=== PATIENT | male | born 1955 ===

== ENCOUNTER 2018-06-10 16:30 | Emergency (ER) | payer MEDICAID ==
[2018-06-10 16:46] VITALS: RESP 16
--- NOTE | 2018-06-10 17:14 | C.PDOC ---
History Of Present Illness 63 y/o male presents to the ED with complaints of nausea, vomiting, and abdominal pain since last night. Patient had 2 episodes of vomiting, nonbilious nonbloody. Denies any diarrhea, constipation, blood in the stool, hematuria, fever, or change in PO intake. Denies any drug use. Time Seen by Provider: 06/10/18 16:53 Chief Complaint (Nursing): Abdominal Pain History Per: Patient History/Exam Limitations: no limitations Onset/Duration Of Symptoms: Days Current Symptoms Are (Timing): Still Present Associated Symptoms: Nausea, Vomiting Past Medical History Reviewed: Historical Data, Nursing Documentation, Vital Signs Vital Signs: Last Vital Signs Temp 98.5 F 06/10/18 16:44 Pulse 69 06/10/18 16:44 Resp 16 06/10/18 16:44 BP 167/69 H 06/10/18 16:44 Pulse Ox 98 06/10/18 16:44 - Medical History PMH: No Chronic Diseases Family History: States: No Known Family Hx - Social History Hx Tobacco Use: No Hx Alcohol Use: No Hx Substance Use: No - Immunization History Hx Tetanus Toxoid Vaccination: No Hx Influenza Vaccination: No Hx Pneumococcal Vaccination: No Review Of Systems Except As Marked, All Systems Reviewed And Found Negative. Constitutional: Negative for: Fever, Chills Cardiovascular: Negative for: Palpitations Respiratory: Negative for: Shortness of Breath Gastrointestinal: Positive for: Nausea, Vomiting, Abdominal Pain. Negative for: Diarrhea, Hematochezia, Hematemesis, Other (change in PO intake) Genitourinary: Negative for: Dysuria, Hematuria Neurological: Negative for: Weakness, Dizziness Physical Exam - Physical Exam Appears: Non-toxic, No Acute Distress Skin: Normal Color, Warm, Dry Head: Atraumatic, Normacephalic Eye(s): bilateral: Normal Inspection, PERRL, EOMI Oral Mucosa: Moist Neck: Normal ROM Chest: Symmetrical Cardiovascular: Rhythm Regular, No Murmur Respiratory: Normal Breath Sounds, No Accessory Muscle Use, Other (No respiratory distress) Gastrointestinal/Abdominal: Soft, Tenderness (epigastric abdominal tenderness), No Guarding, No Rebound Back: No CVA Tenderness, No Vertebral Tenderness Extremity: Bilateral: Atraumatic, Normal Color And Temperature, Normal ROM Neurological/Psych: Oriented x3, Normal Speech ED Course And Treatment - Laboratory Results Result Diagrams: 06/10/18 17:36 12/17/18 17:36 O2 Sat by Pulse Oximetry: 98 (RA) Pulse Ox Interpretation: Normal Medical Decision Making Medical Decision Making: Impression: Abdominal pain, Nausea, Vomiting Plan: --Blood work --20 mg IV Pepcid --8 mg IV Zofran --IV fluids --30 mg IV Toradol --CT Abd/Pelvis with IV contrast [facility] - [facility] - Disposition: HOME/ ROUTINE Disposition Time: 19:50 Condition: IMPROVED Additional Instructions: KHRIS POLO, thank you for letting us take care of you today. The emergency medical care you received today was directed at your acute symptoms. If you were prescribed any medication, please fill it and take as directed. It may take several days for your symptoms to resolve. Return to the Emergency Department if your symptoms worsen, do not improve, or if you have any other problems. Please contact your doctor or call one of the physicians/clinics you have been referred to that are listed on the Patient Visit Information form that is included in your discharge packet. Bring any paperwork you were given at [facility], [place] with you along with any medications you are taking to your follow up visit. Our treatment cannot replace ongoing medical care by a primary care provider outside of the emergency department. Thank you for allowing the [facility] team to be part of your care today. Follow up with your primary care doctor in 2-3 days for re-evaluation and further management. Prescriptions: Famotidine [Pepcid] 20 mg PO BID #14 tab Ondansetron ODT [Zofran ODT] 8 mg PO Q8 PRN #15 odt PRN Reason: Nausea/Vomiting Instructions: Gastritis (DC) Forms: [employer] (Macedonian) - Clinical Impression Clinical Impression: Abdominal pain, Gastritis - Scribe Statement The provider has reviewed the documentation as recorded by the Orlando Fernández Provider Attestation: All medical record entries made by the Mickeyiblinda were at my direction and personally dictated by me. I have reviewed the chart and agree that the record accurately reflects my personal performance of the history, physical exam, medical decision making, and the department course for this patient. I have also personally directed, reviewed, and agree with the discharge instructions and disposition.
[2018-06-10] MEDS ORDERED: Sodium Chloride 0.9% 1,000 ML IV ONE (17:17)
[2018-06-10] MEDS ORDERED: Sodium Chloride 0.9% 1,000 ML ONE (17:40)
[2018-06-10 17:41] LABS: BASO # 0.1 K/uL (0.0-0.2); BASO % 0.8 % (0.0-2.0); EOS % 0.4 % (0.0-4.0); HEMOGLOBIN 14.5 g/dL (12.0-18.0); LYMPH # 1.7 K/uL (1.0-4.3); LYMPH % 17.5 % (20.0-40.0); MEAN CORPUSCULAR HGB CONC 33.7 g/dL (33.0-37.0); MEAN PLATELET VOLUME 8.1 fL (7.2-11.7); MONO # 0.4 K/uL (0.0-0.8); MONO % 4.1 % (0.0-10.0); NEUT # 7.6 K/uL (1.8-7.0); NEUT % 77.2 % (50.0-75.0); RBC 4.68 Mil/uL (4.40-5.90); RED CELL DISTRIBUTION WIDTH 13.6 % (11.5-14.5); WHITE BLOOD COUNT 9.8 K/uL (4.8-10.8)
[2018-06-10 17:58] LABS: ALB/GLOB RATIO 1.3 (1.0-2.1); ALBUMIN 4.8 g/dL (3.5-5.0); ALT/SGPT 35 U/L (21-72); AST/SGOT 25 U/L (17-59); BLOOD UREA NITROGEN 13 mg/dL (9-20); CALCIUM 9.4 mg/dl (8.6-10.4); GFR NON-AFRICAN AMERICAN > 60; LIPASE 34 U/L (23-300)
[2018-06-10] MEDS ORDERED: Iohexol 300 100 ML IJ ONE (18:38)
--- NOTE | 2018-06-10 19:30 | CT ---
Date of service: 06/10/2018 PROCEDURE: CT Abdomen and Pelvis with contrast HISTORY: upper abdominal pain/tenderness COMPARISON: None. TECHNIQUE: Contrast dose: 100 milliliters. Radiation dose: Total exam DLP = 1016.1 mGy-cm. This CT exam was performed using one or more of the following dose reduction techniques: Automated exposure control, adjustment of the mA and/or kV according to patient size, and/or use of iterative reconstruction technique. FINDINGS: LOWER THORAX: No focal alveolar infiltrate or effusion is seen at the lung bases. Visualized distal esophagus is unremarkable. Stomach is distended with debris, but without definite wall thickening. Antrum is normal in outline. Duodenum is unremarkable. LIVER: Unremarkable. No gross lesion or ductal dilatation. GALLBLADDER AND BILE DUCTS: Unremarkable. PANCREAS: Unremarkable. No gross lesion or ductal dilatation. SPLEEN: Unremarkable. ADRENALS: Unremarkable. No mass. KIDNEYS AND URETERS: There is evidence of a small right renal cyst. No hydronephrosis, calculus, or perinephric changes are identified. No ureteral calculus is seen. VASCULATURE: Unremarkable. No aortic aneurysm. Mild atheromatous plaque is identified in the aortoiliac region. BOWEL: Unremarkable. No obstruction. No gross mural thickening. APPENDIX: Normal appendix. PERITONEUM: Unremarkable. No free fluid. No free air. LYMPH NODES: Unremarkable. No enlarged lymph nodes. BLADDER: Unremarkable. REPRODUCTIVE: Prostate gland is mildly enlarged with some calcification. BONES: There are degenerative changes seen in the spine. There are some small subchondral cysts seen in the superior endplate region of L4. No bony lesion is seen elsewhere. Mild degenerative changes are seen in the hips. Mild disc bulging is seen in the lower lumbar spine region. OTHER FINDINGS: Small umbilical fat containing hernia is noted. IMPRESSION: Distended stomach with moderate debris. Further clinical follow-up is suggested to exclude an entity such as gastro paresis. No gastric wall thickening is seen. No appreciable other acute inflammatory process in the abdomen or pelvis. No evidence of bowel obstruction, gallstones, or hydronephrosis. Small right renal cyst.
[2018-06-10 20:14] VITALS: BP 151/83; PULSE 68; TEMP 98.3
[2018-06-11 00:09] VITALS: O2SAT 98
== END 2018-06-10 20:13 | disposition home or self-care (01) ==
LOC: C.ER 16:30
DX: K29.70 Gastritis, unspecified, without bleeding (principal); R10.13 Epigastric pain
CPT/HCPCS: 74177; 80053; 83690; 85025; 96374; 96375; 99285; J1885; J2405; J7030; Q9967